=== PATIENT | female | born 1990 | race Caucasian/White ===

== ENCOUNTER 2018-08-08 23:10 | Emergency (ER) | payer OTHER ==
[2018-08-08 23:39] LABS: Basophils % (Auto) 0.4 % (0.0-1.8); Eosinophils # (Auto) 0.1 K/mm3 (0.0-0.4); Eosinophils % (Auto) 1.3 % (0.0-4.3); Hematocrit 37.9 % (30.3-42.9); Hemoglobin 12.9 gm/dl (10.1-14.3); Lymphocytes # (Auto) 2.6 K/mm3 (1.2-5.4); Lymphocytes % (Auto) 31.5 % (13.4-35.0); Mean Corpuscular HGB Conc 34 % (30-34); Mean Corpuscular Volume 84 fl (79-97); Monocytes # (Auto) 0.5 K/mm3 (0.0-0.8); Monocytes % (Auto) 5.8 % (0.0-7.3); Platelet Count 227 K/mm3 (140-440); Red Blood Count 4.51 M/mm3 (3.65-5.03); Red Cell Distribution Width 14.2 % (13.2-15.2)
[2018-08-08 23:52] LABS: Amorphous Crystals,Urine Few; Bilirubin,Urine NEG (Negative); Blood,Urine NEG (Negative); Color,Urine Yellow (Yellow); Mucus,Urine 2+ /HPF; Protein,Urine <15 mg/dL mg/dL (Negative); Urobilinogen,Urine < 2.0 mg/dL (<2.0)
[2018-08-08 23:54] LABS: Alanine Aminotransferase 20 units/L (7-56); BUN/Creatinine Ratio 10; Blood Urea Nitrogen 5 mg/dL (7-17); Calcium 8.5 mg/dL (8.4-10.2); Hemolysis Index 2
--- NOTE | 2018-08-09 01:31 | Emergency Department Report ---
ED Abdominal Pain HPI - General Chief Complaint: Abdominal Pain Stated Complaint: ABD PAIN Time Seen by Provider: 08/09/18 00:24 Source: patient Mode of arrival: Ambulatory Limitations: No Limitations - History of Present Illness Initial Comments: 27-year-old obese female emergency department complaining of lower abdominal pain which started today. States she is 11 weeks . 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 Denies any vaginal bleeding or any vaginal discharge or dysuria. Denies any trauma. No back pain. She reports no fever, chills, sweats, chest pain, palpitations, coryza. MD Complaint: abdominal pain -: Gradual Radiation: none Migration to: no migration Severity scale (0 -10): 8 Quality: aching, dull Improves With: nothing, bowel movement Worsens With: nothing Associated Symptoms: denies other symptoms - Related Data Allergies Allergy/AdvReac Type Severity Reaction Status Date / Time No Known Allergies Allergy Verified 08/08/18 23:14 ED Review of Systems ROS: Stated complaint: ABD PAIN Other details as noted in HPI Constitutional: denies: chills, fever Eyes: denies: eye pain, eye discharge, vision change ENT: denies: ear pain, throat pain Respiratory: denies: cough, shortness of breath, wheezing Cardiovascular: denies: chest pain, palpitations Endocrine: no symptoms reported Gastrointestinal: denies: abdominal pain, nausea, diarrhea Genitourinary: denies: urgency, dysuria, discharge Musculoskeletal: denies: back pain, joint swelling, arthralgia Skin: denies: rash, lesions Neurological: denies: headache, weakness, paresthesias Psychiatric: denies: anxiety, depression Hematological/Lymphatic: denies: easy bleeding, easy bruising ED Past Medical Hx - Past Medical History Previous Medical History?: No - Surgical History Past Surgical History?: No - Social History Smoking Status: Never Smoker Substance Use Type: None ED Physical Exam - General Limitations: No Limitations General appearance: alert, in no apparent distress - Head Head exam: Present: atraumatic, normocephalic - Eye Eye exam: Present: normal appearance - ENT ENT exam: Present: mucous membranes moist - Neck Neck exam: Present: normal inspection - Respiratory Respiratory exam: Present: normal lung sounds bilaterally. Absent: respiratory distress - Cardiovascular Cardiovascular Exam: Present: regular rate, normal rhythm. Absent: systolic murmur, diastolic murmur, rubs, gallop - GI/Abdominal GI/Abdominal exam: Present: soft, normal bowel sounds - Extremities Exam Extremities exam: Present: normal inspection - Back Exam Back exam: Present: normal inspection - Neurological Exam Neurological exam: Present: alert, oriented X3 - Psychiatric Psychiatric exam: Present: normal affect, normal mood - Skin Skin exam: Present: warm, dry, intact, normal color. Absent: rash ED Course Vital Signs 08/08/18 23:14 Temperature 98.4 F Pulse Rate 82 Respiratory 18 Rate Blood Pressure 118/72 O2 Sat by Pulse 98 Oximetry ED Medical Decision Making - Lab Data Result diagrams: 08/08/18 23:22 08/08/18 23:22 - Medical Decision Making Ultrasound of the abdomen did yielded a 13 week viable but with a heartbeat of 161 bpm Critical care attestation.: If time is entered above; I have spent that time in minutes in the direct care of this critically ill patient, excluding procedure time. ED Disposition Clinical Impression: Pelvic pain during Disposition: DC-01 TO HOME OR SELFCARE Is pt being admited?: No Does the pt Need Aspirin: No Condition: Stable Instructions: Abdominal Pain (ED), Pelvic Ultrasound (GEN) Referrals: BLAZE HERNANDEZ MD [Primary Care Provider] - 3-5 Days
--- NOTE | 2018-08-09 02:06 | Ultrasound Report ---
PROCEDURE: US OB TRANSVAGINAL TECHNIQUE: Transvaginal imaging was obtained of the pelvis including Doppler interrogation of the ut erus. HISTORY: pelvic pain and no bleeding COMPARISONS: None FINDINGS: The uterus is anteverted measuring 12.3 x 7.2 x 11.1 cm. Within the uterus is a gestational sac which contains an embryo corresponding to a 13 week 3 day IUP. The heart rate is 161 BPM. There is a small subchorionic hemorrhage adjacent to the gestational sac. Free fluid is not seen. The maternal ovaries are not identified. IMPRESSION: Single viable IUP, 13 weeks 3 days. heart rate is 161 BPM. Small subchorionic hemorrhage.. This document is electronically signed by Vishal Mark MD., August 09 2018 02:03:41 AM ET
--- NOTE | 2018-08-09 02:07 | Ultrasound Report ---
PROCEDURE: US OB <= 14 WEEKS FETUS TECHNIQUE: Transabdominal imaging was obtained the pelvis and Doppler interrogation of the adnexa an d uterus. HISTORY: pelvic pain and no bleeding COMPARISONS: None FINDINGS: The uterus is anteverted measuring 12.3 x 7.2 x 11.1 cm. Within the uterus is a well-formed gestation al sac which contains an embryo corresponding to a 13 week 3 day IUP. The heart rate is 161 BPM . There is a small hypoechoic area adjacent to the gestational sac compatible with a subchorionic hem orrhage. Free fluid is not seen. The ovaries are not identified. IMPRESSION: Single viable IUP, 13 weeks 3 days. heart rate is 161 BPM. Small subchorionic hemorrhage.. This document is electronically signed by Vishal Mark MD., August 09 2018 02:05:02 AM ET
[2018-08-09 03:34] VITALS: BP 118/64
== END 2018-08-09 03:36 | disposition home or self-care (01) ==
LOC: ED 23:10
DX: O26.891 Other specified pregnancy related conditions, first trimester (principal); R10.2 Pelvic and perineal pain; Z3A.13 13 weeks gestation of pregnancy
CPT/HCPCS: 36415; 76801; 76817; 80053; 81001; 84702; 84703; 85025; 99284